=== PATIENT | female | born 1995 | race American Indian/Alaskan Native ===

== ENCOUNTER 2018-12-20 18:52 | Emergency (ER) | payer OTHER, MEDICAID ==
[2018-12-20 19:20] VITALS: BP 132/87
[2018-12-20 19:41] LABS: Basophils % (Auto) 0.5 % (0.0-1.8); Eosinophils % (Auto) 0.7 % (0.0-4.3); Hematocrit 33.5 % (30.3-42.9); Lymphocytes # (Auto) 1.8 K/mm3 (1.2-5.4); Lymphocytes % (Auto) 26.5 % (13.4-35.0); Mean Corpuscular HGB Conc 33 % (30-34); Mean Corpuscular Volume 85 fl (79-97); Monocytes # (Auto) 0.5 K/mm3 (0.0-0.8); Monocytes % (Auto) 7.1 % (0.0-7.3); Platelet Count 309 K/mm3 (140-440); Red Blood Count 3.95 M/mm3 (3.65-5.03)
[2018-12-20 19:53] LABS: BUN/Creatinine Ratio 17; Blood Urea Nitrogen 12 mg/dL (7-17); Calcium 9.1 mg/dL (8.4-10.2); Hemolysis Index 3
[2018-12-20 20:03] LABS: Bilirubin,Urine NEG (Negative); Blood,Urine SM (Negative); Color,Urine Yellow (Yellow); Mucus,Urine FEW /HPF; Protein,Urine <15 mg/dL mg/dL (Negative); Urobilinogen,Urine < 2.0 mg/dL (<2.0); WBC,Urine < 1.0 /HPF (0.0-6.0)
[2018-12-20 20:08] LABS: HCG Qualitative,Urine Negative (Negative)
--- NOTE | 2018-12-20 22:42 | Emergency Department Report ---
ED Female HPI - General Chief complaint: Vaginal Bleeding Stated complaint: LIGHT HEADED /DIZZY/CRAMPS Time Seen by Provider: 12/20/18 22:33 Source: patient Mode of arrival: Ambulatory Limitations: No Limitations - History of Present Illness Initial comments: 23-year-old female presents to ED with complaint of vaginal bleeding. Patient reports 10 day history of vaginal spotting with associated cramping. Denies vaginal discharge. Not currently taking any control. 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 denies: vaginal discharge, nausea/vomiting, fever/chills, dysuria, shortness of breath - Related Data Previous Rx's Medication Instructions Recorded Last Taken Type Fluconazole [Diflucan TAB] 150 mg PO ONCE #1 tablet 12/20/18 Unknown Rx metroNIDAZOLE [Flagyl] 500 mg PO Q12HR #14 tab 12/20/18 Unknown Rx Allergies Allergy/AdvReac Type Severity Reaction Status Date / Time No Known Allergies Allergy Verified 08/08/13 16:32 ED Review of Systems ROS: Stated complaint: LIGHT HEADED /DIZZY/CRAMPS Other details as noted in HPI Comment: All other systems reviewed and negative Constitutional: denies: chills, fever Respiratory: denies: shortness of breath Cardiovascular: denies: chest pain Gastrointestinal: abdominal pain. denies: nausea, vomiting Genitourinary: abnormal menses ED Past Medical Hx - Past Medical History Previous Medical History?: Yes Hx Hypertension: No Hx Diabetes: No Hx Deep Vein Thrombosis: No Hx Renal Disease: No Hx Sickle Cell Disease: No Hx Seizures: No Hx Asthma: No Hx HIV: No - Surgical History Past Surgical History?: No - Social History Smoking Status: Never Smoker Substance Use Type: None - Medications Home Medications: Home Medications Medication Instructions Recorded Confirmed Last Taken Type Fluconazole [Diflucan TAB] 150 mg PO ONCE #1 tablet 12/20/18 Unknown Rx metroNIDAZOLE [Flagyl] 500 mg PO Q12HR #14 tab 12/20/18 Unknown Rx ED Physical Exam - General Limitations: No Limitations General appearance: alert, in no apparent distress - Head Head exam: Present: atraumatic, normocephalic - Eye Eye exam: Present: normal appearance - ENT ENT exam: Present: mucous membranes moist - Neck Neck exam: Present: normal inspection - Respiratory Respiratory exam: Present: normal lung sounds bilaterally. Absent: respiratory distress - Cardiovascular Cardiovascular Exam: Present: regular rate, normal rhythm - GI/Abdominal GI/Abdominal exam: Present: soft, tenderness (suprapubic). Absent: distended - External exam: Present: normal external exam Speculum exam: Present: vaginal discharge Bi-manual exam: Absent: cervical motion tendernes - Extremities Exam Extremities exam: Present: normal inspection - Neurological Exam Neurological exam: Present: alert, oriented X3, normal gait. Absent: CN II-XII intact, motor sensory deficit - Psychiatric Psychiatric exam: Present: normal affect, normal mood - Skin Skin exam: Present: warm, dry, intact, normal color ED Course Vital Signs 12/20/18 12/20/18 12/20/18 19:14 19:18 22:38 Temperature 99.6 F 99.6 F Pulse Rate 82 78 Respiratory 18 18 18 Rate Blood Pressure 132/87 132/87 O2 Sat by Pulse 98 99 Oximetry 12/20/18 12/20/18 22:44 22:45 Temperature Pulse Rate Respiratory Rate Blood Pressure O2 Sat by Pulse 99 98 Oximetry ED Medical Decision Making - Lab Data Result diagrams: 12/20/18 19:30 12/20/18 19:30 - Medical Decision Making - vitals stable - Hb normal - pelvic exam shows brownish discharge - GC/ Chlam empiric abx given - BV on wet prep - advised outpt SENIOR NET WEB DEVELOPER f/u for DUB - Differential Diagnosis , ectopic, DUB Critical care attestation.: If time is entered above; I have spent that time in minutes in the direct care of this critically ill patient, excluding procedure time. ED Disposition Clinical Impression: DUB (dysfunctional uterine bleeding), Bacterial vaginosis Disposition: DC-01 TO HOME OR SELFCARE Is pt being admited?: No Condition: Stable Instructions: Bacterial Vaginosis (ED) Prescriptions: Fluconazole [Diflucan TAB] 150 mg PO ONCE #1 tablet metroNIDAZOLE [Flagyl] 500 mg PO Q12HR #14 tab Referrals: PRIMARY CARE, [Referring] - 3-5 Days Forms: STI Treatment and Prevention Time of Disposition: 23:58
[2018-12-20] MEDS ORDERED: ROCEPHIN IM ONE (23:26)
[2018-12-20] MEDS ORDERED: XYLOCAINE 1% MPF 5 mL INFILTRATI ONE (23:26)
[2018-12-20] MEDS ORDERED: ZITHROMAX PO ONE (23:26)
== END 2018-12-21 00:43 | disposition home or self-care (01) ==
LOC: ED 18:52
DX: N76.0 Acute vaginitis (principal); N93.8 Other specified abnormal uterine and vaginal bleeding
CPT/HCPCS: 36415; 80048; 81001; 81025; 84702; 85025; 87210; 87591; 96372; 99284; J0696

== ENCOUNTER 2020-04-12 18:54 | Emergency (ER) | payer BC, MEDICAID, OTHER ==
[2020-04-12 19:28] VITALS: BP 138/84
[2020-04-12 19:57] LABS: Bilirubin,Urine NEG (Negative); Blood,Urine LG (Negative); Color,Urine Yellow (Yellow); Mucus,Urine FEW /HPF; Protein,Urine <15 mg/dL mg/dL (Negative); Urobilinogen,Urine < 2.0 mg/dL (<2.0)
[2020-04-12 20:11] LABS: Basophils % (Auto) 0.5 % (0.0-1.8); Eosinophils % (Auto) 0.4 % (0.0-4.3); Hematocrit 31.2 % (30.3-42.9); Hemoglobin 10.1 gm/dl (10.1-14.3); Lymphocytes # (Auto) 1.7 K/mm3 (1.2-5.4); Lymphocytes % (Auto) 23.8 % (13.4-35.0); Mean Corpuscular HGB Conc 32 % (30-34); Mean Corpuscular Volume 82 fl (79-97); Monocytes # (Auto) 0.4 K/mm3 (0.0-0.8); Monocytes % (Auto) 5.8 % (0.0-7.3); Platelet Count 337 K/mm3 (140-440); Red Blood Count 3.81 M/mm3 (3.65-5.03)
--- NOTE | 2020-04-12 23:05 | Ultrasound Report ---
ULTRASOUND OBSTETRIC LIMITED INDICATION / CLINICAL INFORMATION: Vaginal bleeding. Clinical Gestational Age (GA): 1 weeks. 4 days COMPARISON: None available. FINDINGS: No evidence of intrauterine . The uterus is within normal limits for size and demonstrates n o evidence of focal lesions. The bilateral ovaries are not well seen on this exam secondary to patien t body habitus and overlying bowel gas. The visualized portions of the adnexa are unremarkable . ADDITIONAL FINDINGS: None. IMPRESSION: 1. No evidence of intrauterine , however this is likely secondary to the early dating (1 wee k 4 days). Correlation with test and beta hCG values is recommended. Follow-up ultrasound f or confirmation of intrauterine is also recommended. Signer Name: Eliseo Rosario MD Signed: 04/12/2020 11:01 PM Workstation Name: [id number]
--- NOTE | 2020-04-12 23:59 | Emergency Department Report ---
ED Female HPI - General Chief complaint: Vaginal Bleeding Stated complaint: VAG BLEEDING Source: patient Mode of arrival: Ambulatory Limitations: No Limitations - History of Present Illness Initial comments: Patient is a A1 25-year-old -[place] female with no past medical history presents to the ED with complaint of acute onset persistent intermittent vaginal bleeding and suprapubic pressure and pain for the last 1 month. Patient states that she initially thought that the bleeding was from her menstrual cycle but that the bleeding has been persistent intermittent, worse with sexual intercourse. Patient denies dyspareunia, vaginal discharge, dysuria, urinary frequency and urgency, nausea, vomiting, diarrhea, dizziness, traumatic injury, fever, chills, cough, chest pain or shortness of breath and low back pain. MD Complaint: vaginal bleeding, pelvic pain -: Gradual, month(s) (1) Location: suprapubic, other (vaginal) Radiation: suprapubic Severity: moderate Severity scale (0 -10): 3 Quality: cramping, dull Consistency: intermittent Improves with: none Worsens with: intercourse Are you Now?: No Associated Symptoms: denies other symptoms, vaginal bleeding, abdominal pain. denies: vaginal discharge, headaches, loss of appetite, hematuria, rash, shortness of breath, syncope, other - Related Data Sexually active: Yes : 1 Para: 0 A: 1 Previous Rx's Medication Instructions Recorded Last Taken Type Fluconazole (Nf) [Diflucan TAB] 150 mg PO ONCE #1 tablet 12/20/18 Unknown Rx metroNIDAZOLE [Flagyl] 500 mg PO Q12HR #14 tab 12/20/18 Unknown Rx Ibuprofen [Motrin] 800 mg PO Q8HR PRN #30 tablet 04/13/20 Unknown Rx medroxyPROGESTERone ACETATE 10 mg PO DAILY #10 tablet 04/13/20 Unknown Rx [Provera] Allergies Allergy/AdvReac Type Severity Reaction Status Date / Time No Known Allergies Allergy Verified 08/08/13 16:32 ED Review of Systems ROS: Stated complaint: VAG BLEEDING Other details as noted in HPI Constitutional: denies: chills, fever Eyes: denies: eye pain, eye discharge, vision change ENT: denies: ear pain, throat pain Respiratory: denies: cough, shortness of breath, wheezing Cardiovascular: denies: chest pain, palpitations Endocrine: no symptoms reported Gastrointestinal: abdominal pain (Suprapubic pain). denies: nausea, vomiting, diarrhea Genitourinary: hematuria, abnormal menses (Vaginal bleeding). denies: urgency, dysuria, discharge Musculoskeletal: denies: back pain, joint swelling, arthralgia Skin: denies: rash, lesions Neurological: denies: headache, weakness, paresthesias Psychiatric: denies: anxiety, depression Hematological/Lymphatic: denies: easy bleeding, easy bruising ED Past Medical Hx - Past Medical History Previous Medical History?: No Hx Hypertension: No Hx Diabetes: No Hx Deep Vein Thrombosis: No Hx Renal Disease: No Hx Sickle Cell Disease: No Hx Seizures: No Hx Asthma: No Hx HIV: No - Surgical History Past Surgical History?: No - Social History Smoking Status: Never Smoker Substance Use Type: None - Medications Home Medications: Home Medications Medication Instructions Recorded Confirmed Last Taken Type Fluconazole (Nf) [Diflucan TAB] 150 mg PO ONCE #1 tablet 12/20/18 Unknown Rx metroNIDAZOLE [Flagyl] 500 mg PO Q12HR #14 tab 12/20/18 Unknown Rx Ibuprofen [Motrin] 800 mg PO Q8HR PRN #30 tablet 04/13/20 Unknown Rx medroxyPROGESTERone ACETATE 10 mg PO DAILY #10 tablet 04/13/20 Unknown Rx [Provera] ED Physical Exam - General Limitations: No Limitations General appearance: alert, in no apparent distress - Head Head exam: Present: atraumatic, normocephalic, normal inspection - Eye Eye exam: Present: normal appearance, PERRL, EOMI Pupils: Present: normal accommodation - ENT ENT exam: Present: normal exam, normal orophraynx, mucous membranes moist, TM's normal bilaterally, normal external ear exam - Neck Neck exam: Present: normal inspection, full ROM - Respiratory Respiratory exam: Present: normal lung sounds bilaterally. Absent: respiratory distress, wheezes, rales, rhonchi, chest wall tenderness, accessory muscle use, decreased breath sounds - Cardiovascular Cardiovascular Exam: Present: regular rate, normal rhythm, normal heart sounds. Absent: systolic murmur, diastolic murmur, rubs, gallop - GI/Abdominal GI/Abdominal exam: Present: soft, normal bowel sounds. Absent: tenderness, guarding, rebound, hyperactive bowel sounds, hypoactive bowel sounds - Bi-manual exam: Present: other (Pelvic exam deferred, patient prefers LEARNING AND DEVELOPMENT ASSOCIATE) - Extremities Exam Extremities exam: Present: normal inspection, full ROM, normal capillary refill. Absent: pedal edema, joint swelling, calf tenderness - Back Exam Back exam: Present: normal inspection, full ROM. Absent: tenderness, CVA tenderness (R), CVA tenderness (L), muscle spasm, paraspinal tenderness - Neurological Exam Neurological exam: Present: alert, oriented X3, CN II-XII intact, normal gait, reflexes normal - Psychiatric Psychiatric exam: Present: normal affect, normal mood - Skin Skin exam: Present: warm, dry, intact, normal color. Absent: rash ED Course Vital Signs 04/12/20 19:23 Temperature 98.8 F Pulse Rate 80 Respiratory 20 Rate Blood Pressure 138/84 O2 Sat by Pulse 97 Oximetry ED Medical Decision Making - Lab Data Result diagrams: 04/12/20 19:58 - Radiology Data Radiology results: report reviewed, image reviewed Findings [facility] [address] [place] [address] Ultrasound Report Signed Patient: MARIELLE MATOS MR#: [id number] : 1995 Acct:[id number] Age/Sex: 25 / F ADM Date: 04/12/20 Loc: ED Attending Dr: Ordering Physician: OLENA JIMENEZ Date of Service: 04/12/20 Procedure(s): US OB limited Accession Number(s): [id number] cc: OLENA JIMENEZ ULTRASOUND OBSTETRIC LIMITED INDICATION / CLINICAL INFORMATION: Vaginal bleeding. Clinical Gestational Age (GA): 1 weeks. 4 days COMPARISON: None available. FINDINGS: No evidence of intrauterine . The uterus is within normal limits for size and demonstrates no evidence of focal lesions. The bilateral ovaries are not well seen on this exam secondary to patient body habitus and overlying bowel gas. The visualized portions of the adnexa are unremarkable . ADDITIONAL FINDINGS: None. IMPRESSION: 1. No evidence of intrauterine , however this is likely secondary to the early dating (1 week 4 days). Correlation with test and beta hCG values is recommended. Follow-up ultrasound for confirmation of intrauterine is also recommended. Signer Name: Eliseo Mcintyre MD Signed: 04/12/2020 11:01 PM Workstation Name: [id number] Transcribed By: Dictated By: ELISEO T. FRANCISCO JAVIER Electronically Authenticated By: ELISEO MCINTYRE Signed Date/Time: 04/12/202300 DD/ 55 TD/TT: - Medical Decision Making This is a A1 25-year-old -[place] female with no past medical history presents to the ED with complaint of acute onset persistent intermittent vaginal bleeding and suprapubic pressure and pain for the last 1 month. Patient states that she initially thought that the bleeding was from her menstrual cycle but that the bleeding has been persistent intermittent, worse with sexual intercourse. In the ED, patient is alert and oriented x3 and is not in distress. Lab test results were reviewed and are all nonactionable. Patient was treated for pain in the ED and transvaginal ultrasound showed no acute abnormalities. Patient was discharged home on medications including medroxyprogesterone and was advised to follow-up with her LEARNING AND DEVELOPMENT ASSOCIATE physician as previously scheduled for April 26, 2020 for further evaluation. Patient was advised return to the ED immediately if symptoms get worse. - Differential Diagnosis ; metrorrhagia; DU B; uterine fibroids; cystitis; ovarian cyst Critical care attestation.: If time is entered above; I have spent that time in minutes in the direct care of this critically ill patient, excluding procedure time. ED Disposition Clinical Impression: Dysfunctional uterine hemorrhage, Menorrhagia with irregular cycle Disposition: TO HOME OR SELFCARE Is pt being admited?: No Does the pt Need Aspirin: No Condition: Stable Instructions: Menstruation (ED), Menorrhagia (ED) Additional Instructions: All lab test results are unremarkable. Transvaginal ultrasound is unremarkable with no acute abnormalities. Therefore take medication as advised, follow-up with your LEARNING AND DEVELOPMENT ASSOCIATE physician in 5 to 7 days for reevaluation. Return to the ED immediately if symptoms get worse. Prescriptions: Ibuprofen [Motrin] 800 mg PO Q8HR PRN #30 tablet PRN Reason: Pain , Severe (7-10) medroxyPROGESTERone ACETATE [Provera] 10 mg PO DAILY #10 tablet Referrals: GAYATRI ACEVEDO MD [Staff Physician] - 3-5 Days Time of Disposition: 00:00 Print Language: SLOVAK
== END 2020-04-13 00:10 | disposition home or self-care (01) ==
LOC: ED 18:54
DX: N92.0 Excessive and frequent menstruation with regular cycle (principal); N93.8 Other specified abnormal uterine and vaginal bleeding; Z79.1 Long term (current) use of non-steroidal anti-inflammatories (NSAID); Z79.899 Other long term (current) drug therapy
CPT/HCPCS: 36415; 76815; 81001; 84703; 85025; 86900; 86901

== ENCOUNTER 2020-07-09 13:07 | Emergency (ER) | payer SELFPAY ==
[2020-07-09 16:16] VITALS: BP 131/91
--- NOTE | 2020-07-09 16:16 | Emergency Department Report ---
Blank Doc - Documentation Documentation: 25-year-old female that presents with right sided headache and weakness. Stated has been taking OTC medications with no relief. Denies any cough. Matthew hx of headache like this. This initial assessment/diagnostic orders/clinical plan/treatment(s) is/are subject to change based on patient's health status, clinical progression and re- assessment by fellow clinical providers in the ED. Further treatment and workup at subsequent clinical providers discretion. Patient/guardians urged not to elope from the ED as their condition may be serious if not clinically assessed and managed. Initial orders include: 1- Patient sent to [facility] for further evaluation and treatment 2- CT head
--- NOTE | 2020-07-09 16:53 | Cat Scan Report ---
CT BRAIN: 07/09/2020 INDICATION / CLINICAL INFORMATION: Right-sided headache. COMPARISON: 10/27/2014 FINDINGS: BRAIN/INTRACRANIAL STRUCTURES: Unenhanced CT images of the brain demonstrate no evidence of acute int racranial abnormality. Ventricles and sulci are normal in size and shape. There is no evidence of ischemic injury, hemorrhage, or mass. There are no abnormal extra-axial fluid collections. There is been no significant change when compared to 10/27/2014. EXTRACRANIAL STRUCTURES: Unremarkable. IMPRESSION: Negative unenhanced CT of the brain. All CT scans at this location are performed using dose reduction to ALARA by means of automated expos ure control. Signer Name: Manish Magallon MD Signed: 07/09/2020 4:49 PM Workstation Name: [id number]
== END 2020-07-10 01:24 ==
LOC: ED 13:07
DX: R51.9 Headache, unspecified (principal); M79.10 Myalgia, unspecified site; Z53.21 Procedure and treatment not carried out due to patient leaving prior to being seen by health care provider
CPT/HCPCS: 70450

== ENCOUNTER 2020-08-14 11:25 | Emergency (ER) | payer SELFPAY ==
--- NOTE | 2020-08-14 11:37 | Emergency Department Report ---
ED HPI - General Chief complaint: Vaginal Bleeding Stated complaint: 11WKS PREG BLEEDING X 2DAYS Time Seen by Provider: 08/14/20 11:29 Source: patient Mode of arrival: Ambulatory Limitations: No Limitations - History of Present Illness Initial comments: Patient is a 25-year-old female presents emergency room with complaints of vaginal bleeding that began 2 days ago. She denies any significant heavy bleeding. She states that she has passed a few small clots. She states that she is a currently 11 weeks . She states her MANAGER ADMINISTRATION is at [employer] [facility]. She states that they did a urine test to confirm but she has not had any other evaluation yet. She she states that she has some "mild slight back pain". She denies any abdominal pain, pelvic pain, nausea, vomiting, diarrhea, dysuria, abnormal vaginal discharge. No past medical history. No allergies to medications. /P: 2/A: 1 - Related Data Previous Rx's Medication Instructions Recorded Last Taken Type Fluconazole (Nf) [Diflucan TAB] 150 mg PO ONCE #1 tablet 12/20/18 Unknown Rx metroNIDAZOLE [Flagyl] 500 mg PO Q12HR #14 tab 12/20/18 Unknown Rx Ibuprofen [Motrin] 800 mg PO Q8HR PRN #30 tablet 04/13/20 Unknown Rx medroxyPROGESTERone ACETATE 10 mg PO DAILY #10 tablet 04/13/20 Unknown Rx [Provera] cephALEXin [Keflex] 500 mg PO BID 7 Days #14 cap 08/14/20 Unknown Rx Allergies Allergy/AdvReac Type Severity Reaction Status Date / Time No Known Allergies Allergy Verified 08/14/20 11:28 ED Review of Systems ROS: Stated complaint: 11WKS PREG BLEEDING X 2DAYS Other details as noted in HPI Comment: All other systems reviewed and negative ED Past Medical Hx - Past Medical History Hx Hypertension: No Hx Diabetes: No Hx Deep Vein Thrombosis: No Hx Renal Disease: No Hx Sickle Cell Disease: No Hx Seizures: No Hx Asthma: No Hx HIV: No - Social History Smoking Status: Never Smoker Substance Use Type: None - Medications Home Medications: Home Medications Medication Instructions Recorded Confirmed Last Taken Type Fluconazole (Nf) [Diflucan TAB] 150 mg PO ONCE #1 tablet 12/20/18 Unknown Rx metroNIDAZOLE [Flagyl] 500 mg PO Q12HR #14 tab 12/20/18 Unknown Rx Ibuprofen [Motrin] 800 mg PO Q8HR PRN #30 tablet 04/13/20 Unknown Rx medroxyPROGESTERone ACETATE 10 mg PO DAILY #10 tablet 04/13/20 Unknown Rx [Provera] cephALEXin [Keflex] 500 mg PO BID 7 Days #14 cap 08/14/20 Unknown Rx ED Physical Exam - General Limitations: No Limitations General appearance: alert, in no apparent distress - Head Head exam: Present: atraumatic, normocephalic - Eye Eye exam: Present: normal appearance - ENT ENT exam: Present: mucous membranes moist - Respiratory Respiratory exam: Present: normal lung sounds bilaterally. Absent: respiratory distress, wheezes, rales, rhonchi, stridor, chest wall tenderness, accessory muscle use, decreased breath sounds, prolonged expiratory - Cardiovascular Cardiovascular Exam: Present: regular rate, normal rhythm, normal heart sounds. Absent: systolic murmur, diastolic murmur, rubs, gallop - GI/Abdominal GI/Abdominal exam: Present: soft, normal bowel sounds. Absent: distended, tenderness, guarding, rebound, rigid - Back Exam Back exam: Absent: CVA tenderness (R), CVA tenderness (L) - Neurological Exam Neurological exam: Present: alert, oriented X3 - Psychiatric Psychiatric exam: Present: normal affect, normal mood - Skin Skin exam: Present: warm, dry, intact ED Course Vital Signs 08/14/20 11:31 Temperature 98.3 F Pulse Rate 95 H Respiratory 20 Rate Blood Pressure 143/86 O2 Sat by Pulse 97 Oximetry ED Medical Decision Making - Lab Data Result diagrams: 08/14/20 11:39 08/14/20 11:39 Lab Results 08/14/20 08/14/20 08/14/20 Range/Units 11:39 11:39 11:39 WBC 6.8 (4.5-11.0) K/mm3 RBC 3.59 L (3.65-5.03) M/mm3 Hgb 10.2 (10.1-14.3) gm/dl Hct 29.3 L (30.3-42.9) % MCV 82 (79-97) fl MCH 28 (28-32) pg MCHC 35 H (30-34) % RDW 17.1 H (13.2-15.2) % Plt Count 343 (140-440) K/mm3 Lymph % (Auto) 32.5 (13.4-35.0) % [place] % (Auto) 6.5 (0.0-7.3) % Eos % (Auto) 0.4 (0.0-4.3) % Baso % (Auto) 0.4 (0.0-1.8) % Lymph # (Auto) 2.2 (1.2-5.4) K/mm3 [place] # (Auto) 0.4 (0.0-0.8) K/mm3 Eos # (Auto) 0.0 (0.0-0.4) K/mm3 Baso # (Auto) 0.0 (0.0-0.1) K/mm3 Seg Neutrophils % 60.2 (40.0-70.0) % Seg Neutrophils # 4.1 (1.8-7.7) K/mm3 Sodium 137 (137-145) mmol/L Potassium 4.0 (3.6-5.0) mmol/L Chloride 107.1 H (98-107) mmol/L Carbon Dioxide 23 (22-30) mmol/L Anion Gap 11 mmol/L BUN 12 (7-17) mg/dL Creatinine 0.6 (0.6-1.2) mg/dL Estimated GFR > 60 ml/min BUN/Creatinine Ratio 20 % Glucose 91 (65-100) mg/dL Calcium 9.1 (8.4-10.2) mg/dL Total Bilirubin 0.20 (0.1-1.2) mg/dL AST 13 (5-40) units/L ALT 13 (7-56) units/L Alkaline Phosphatase 60 (35-129) units/L Total Protein 7.4 (6.3-8.2) g/dL Albumin 3.8 L (3.9-5) g/dL Albumin/Globulin Ratio 1.1 % HCG, Quant 32757 H (0-4) mIU/mL Urine Color (Yellow) Urine Turbidity (Clear) Urine pH (5.0-7.0) Ur Specific [place] (1.003-1.030) Urine Protein (Negative) mg/dL Urine Glucose (UA) (Negative) mg/dL Urine Ketones (Negative) mg/dL Urine Blood (Negative) Urine Nitrite (Negative) Urine Bilirubin (Negative) Urine Urobilinogen (<2.0) mg/dL Ur Leukocyte Esterase (Negative) Urine WBC (Auto) (0.0-6.0) /HPF Urine RBC (Auto) (0.0-6.0) /HPF U Epithel Cells (Auto) (0-13.0) /HPF Urine Bacteria (Auto) (Negative) /HPF Urine Mucus /HPF 08/14/20 Range/Units 11:48 WBC (4.5-11.0) K/mm3 RBC (3.65-5.03) M/mm3 Hgb (10.1-14.3) gm/dl Hct (30.3-42.9) % MCV (79-97) fl MCH (28-32) pg MCHC (30-34) % RDW (13.2-15.2) % Plt Count (140-440) K/mm3 Lymph % (Auto) (13.4-35.0) % [place] % (Auto) (0.0-7.3) % Eos % (Auto) (0.0-4.3) % Baso % (Auto) (0.0-1.8) % Lymph # (Auto) (1.2-5.4) K/mm3 [place] # (Auto) (0.0-0.8) K/mm3 Eos # (Auto) (0.0-0.4) K/mm3 Baso # (Auto) (0.0-0.1) K/mm3 Seg Neutrophils % (40.0-70.0) % Seg Neutrophils # (1.8-7.7) K/mm3 Sodium (137-145) mmol/L Potassium (3.6-5.0) mmol/L Chloride (98-107) mmol/L Carbon Dioxide (22-30) mmol/L Anion Gap mmol/L BUN (7-17) mg/dL Creatinine (0.6-1.2) mg/dL Estimated GFR ml/min BUN/Creatinine Ratio % Glucose (65-100) mg/dL Calcium (8.4-10.2) mg/dL Total Bilirubin (0.1-1.2) mg/dL AST (5-40) units/L ALT (7-56) units/L Alkaline Phosphatase (35-129) units/L Total Protein (6.3-8.2) g/dL Albumin (3.9-5) g/dL Albumin/Globulin Ratio % HCG, Quant (0-4) mIU/mL Urine Color [place] (Yellow) Urine Turbidity Cloudy (Clear) Urine pH 5.0 (5.0-7.0) Ur Specific [place] 1.028 (1.003-1.030) Urine Protein 30 mg/dl (Negative) mg/dL Urine Glucose (UA) Neg (Negative) mg/dL Urine Ketones Neg (Negative) mg/dL Urine Blood Lg (Negative) Urine Nitrite Neg (Negative) Urine Bilirubin Neg (Negative) Urine Urobilinogen < 2.0 (<2.0) mg/dL Ur Leukocyte Esterase Mod (Negative) Urine WBC (Auto) 29.0 H (0.0-6.0) /HPF Urine RBC (Auto) 16.0 (0.0-6.0) /HPF U Epithel Cells (Auto) 38.0 H (0-13.0) /HPF Urine Bacteria (Auto) 1+ (Negative) /HPF Urine Mucus 3+ /HPF - Radiology Data Radiology results: report reviewed US OB <= 14 weeks fetus INDICATION / CLINICAL INFORMATION: , bleeding. COMPARISON: None available. FINDINGS: Intrauterine gestational sac is seen with pole. [place]-rump length is 2.3 cm, 9 weeks 0 days. No heart rate was detected. No yolk sac is seen. There is a 1.9 cm right ovarian cyst. Left ovary is unremarkable. No free fluid is seen. IMPRESSION: 1. No embryonic cardiac activity was detected. Findings are suggestive of intr auterine demise, correlate with hCG levels. Signer Name: Zeke Givens MD Signed: 08/14/2020 1:19 PM Workstation Name: [id number] Transcribed By: TARIQ Dictated By: Zeke Givens MD Electronically Authenticated By: Zeke Givens MD Signed Date/Time: 08/14/20 1319 DD/ 1317 TD/TT: - Medical Decision Making Patient is a 25-year-old female presents emergency room with complaints of vaginal bleeding that began 2 days ago. She denies any significant heavy bleeding. She states that she has passed a few small clots. She states that brent jung is a currently 11 weeks . She states her MANAGER ADMINISTRATION is at [facility]. She states that they did a urine test to confirm but she has not had any other evaluation yet. She she states that she has some "mild slight back pain". She denies any abdominal pain, pelvic pain, nausea, vomiting, diarrhea, dysuria, abnormal vaginal discharge. No past medical history. No allergies to medications. /P: 2/A: 1. Vitals are normal. No abdominal tenderness on exam, no guarding, no rebound, no rigidity, normal bowel sounds, [place] [address], otherwise labs are normal. Upon chart review, patient is Rh+. UA shows evidence of UTI, there are many epithelial cells, could be due to contamination, will cover patient with Keflex and urine culture was sent, advised to follow-up with a primary care doctor for urinary testing. OB ultrasound 1. No embryonic cardiac activity was detected. Findings are suggestive of intrauterine demise, correlate with hCG levels. Discussed all results with patient and answered questions. Patient was given her ultrasound report to take to her MANAGER AD[facility]ATION. Discussed the importance of MANAGER ADMINISTRATION follow-up within the next 2 days. Discussed that this is a threatened miscarriage with likely demise. Advised patient Please increase your water intake. May take Tylenol as needed for discomfort. Please take me dication as prescribed. Please practice pelvic rest. Follow-up with your MANAGER ADMINISTRATION at [facility] within the next 2 days. Please discuss with your MANAGER ADMINISTRATION regarding her ultrasound findings. Return to emergency room for any new or worsening symptoms. Critical care attestation.: If time is entered above; I have spent that time in minutes in the direct care of this critically ill patient, excluding procedure time. ED Disposition Clinical Impression: Threatened miscarriage UTI (urinary tract infection) Qualifiers: Urinary tract infection type: acute cystitis Hematuria presence: with hematuria Qualified Code(s): N30.01 - Acute cystitis with hematuria Disposition: TO HOME OR SELFCARE Is pt being admited?: No Does the pt Need Aspirin: No Condition: Stable Instructions: Threatened Miscarriage, Urinary Tract Infection, Adult, [id number] Additional Instructions: Please increase your water intake. May take Tylenol as needed for discomfort. Please take medication as prescribed. Please practice pelvic rest. Follow-up with your MANAGER ADMINISTRATION at [facility] within the next 2 days. Please discuss with your MANAGER ADMINISTRATION regarding her ultrasound findings. Return to emergency room for any new or worsening symptoms. Prescriptions: cephALEXin [Keflex] 500 mg PO BID 7 Days #14 cap Referrals: [facility] [Provider Group] - 2-3 Days PRIMARY [facility]ARE, [Primary Care Provider] - 2-3 Days Time of Disposition: 13:29 Print Language: SERBIAN
[2020-08-14 11:39] VITALS: BP 143/86
[2020-08-14 11:51] LABS: Basophils % (Auto) 0.4 % (0.0-1.8); Eosinophils % (Auto) 0.4 % (0.0-4.3); Hematocrit 29.3 % (30.3-42.9); Hemoglobin 10.2 gm/dl (10.1-14.3); Lymphocytes # (Auto) 2.2 K/mm3 (1.2-5.4); Lymphocytes % (Auto) 32.5 % (13.4-35.0); Mean Corpuscular HGB Conc 35 % (30-34); Mean Corpuscular Volume 82 fl (79-97); Monocytes # (Auto) 0.4 K/mm3 (0.0-0.8); Monocytes % (Auto) 6.5 % (0.0-7.3); Platelet Count 343 K/mm3 (140-440); Red Blood Count 3.59 M/mm3 (3.65-5.03); Red Cell Distribution Width 17.1 % (13.2-15.2)
[2020-08-14 12:11] LABS: Bacteria,Urine 1+ /HPF (Negative); Bilirubin,Urine NEG (Negative); Blood,Urine LG (Negative); Color,Urine Amber (Yellow); Mucus,Urine 3+ /HPF; Urobilinogen,Urine < 2.0 mg/dL (<2.0)
[2020-08-14 12:13] LABS: Alanine Aminotransferase 13 units/L (7-56); Albumin 3.8 g/dL (3.9-5); BUN/Creatinine Ratio 20; Blood Urea Nitrogen 12 mg/dL (7-17); Calcium 9.1 mg/dL (8.4-10.2); Hemolysis Index 1
--- NOTE | 2020-08-14 13:23 | Ultrasound Report ---
US OB <= 14 weeks fetus INDICATION / CLINICAL INFORMATION: , bleeding. COMPARISON: None available. FINDINGS: Intrauterine gestational sac is seen with pole. [place]-rump length is 2.3 cm, 9 weeks 0 days. No heart rate was detected. No yolk sac is seen. There is a 1.9 cm right ovarian cyst. Left ovary is unremarkable. No free fluid is seen. IMPRESSION: 1. No embryonic cardiac activity was detected. Findings are suggestive of intrauterine demise, correlate with hCG levels. Signer Name: Zeke Givens MD Signed: 08/14/2020 1:19 PM Workstation Name: [id number]
== END 2020-08-14 13:30 | disposition home or self-care (01) ==
LOC: ED 11:25
DX: O20.0 Threatened abortion (principal); O23.41 Unspecified infection of urinary tract in pregnancy, first trimester; Z3A.11 11 weeks gestation of pregnancy; Z79.899 Other long term (current) drug therapy
CPT/HCPCS: 36415; 76801; 80053; 81001; 84702; 85025; 87086

== ENCOUNTER 2021-05-08 23:31 | Emergency (ER) | payer SELFPAY ==
[2021-05-08 23:36] VITALS: BP 122/75
[2021-05-09 01:21] LABS: Basophils % (Auto) 0.7 % (0.0-1.8); Eosinophils # (Auto) 0.1 K/mm3 (0.0-0.4); Eosinophils % (Auto) 0.9 % (0.0-4.3); Hematocrit 31.3 % (30.3-42.9); Hemoglobin 9.9 gm/dl (10.1-14.3); Lymphocytes # (Auto) 1.7 K/mm3 (1.2-5.4); Lymphocytes % (Auto) 29.1 % (13.4-35.0); Mean Corpuscular HGB Conc 32 % (30-34); Mean Corpuscular Volume 80 fl (79-97); Monocytes # (Auto) 0.4 K/mm3 (0.0-0.8); Monocytes % (Auto) 7.3 % (0.0-7.3); Platelet Count 325 K/mm3 (140-440); Red Blood Count 3.92 M/mm3 (3.65-5.03); Red Cell Distribution Width 18.9 % (13.2-15.2)
[2021-05-09 01:42] LABS: Bilirubin,Urine NEG (Negative); Blood,Urine MOD (Negative); Color,Urine Yellow (Yellow); Mucus,Urine 2+ /HPF; Protein,Urine <15 mg/dL mg/dL (Negative); Urobilinogen,Urine < 2.0 mg/dL (<2.0)
--- NOTE | 2021-05-09 02:18 | Emergency Department Report ---
ED Female HPI - General Chief complaint: Vaginal Bleeding Stated complaint: POSS MISCARRIAGE Time Seen by Provider: 05/08/21 23:59 Source: patient, EMS Mode of arrival: Stretcher Limitations: No Limitations - History of Present Illness Initial comments: 26-year-old -[place] female with suspected presents emerged department complaining of pelvic cramping and vaginal bleeding started tonight while she was at work.. Patient states that she took a test a few days ago and it was positive and and she had some spotting on yesterday which progressed to some mild to moderate bleeding while at work with a blood clot being passed which triggered her coming to the emergency department today. She reports no abdominal trauma, no fever, chills, sweats, no presyncope, no chest pain, no palpitations and no vaginal discharge has not yet had care visit would be very early in the if she is in fact at about 3 to 4 weeks MD Complaint: vaginal bleeding -: Gradual Location: suprapubic Radiation: non-radiating Severity: mild Quality: cramping, dull Consistency: constant Improves with: none Worsens with: none Are you Now?: Yes Associated Symptoms: vaginal bleeding, abdominal pain. denies: loss of appetite, hematuria, shortness of breath, syncope, weakness - Related Data Sexually active: Yes Previous Rx's Medication Instructions Recorded Last Taken Type Fluconazole (Nf) [Diflucan TAB] 150 mg PO ONCE #1 tablet 12/20/18 Unknown Rx metroNIDAZOLE [Flagyl] 500 mg PO Q12HR #14 tab 12/20/18 Unknown Rx Ibuprofen [Motrin] 800 mg PO Q8HR PRN #30 tablet 04/13/20 Unknown Rx medroxyPROGESTERone ACETATE 10 mg PO DAILY #10 tablet 04/13/20 Unknown Rx [Provera] cephALEXin [Keflex] 500 mg PO BID 7 Days #14 cap 08/14/20 Unknown Rx Allergies Allergy/AdvReac Type Severity Reaction Status Date / Time No Known Allergies Allergy Verified 08/14/20 11:28 ED Review of Systems ROS: Stated complaint: POSS MISCARRIAGE Other details as noted in HPI ED Past Medical Hx - Past Medical History Previous Medical History?: No Hx Hypertension: No Hx Diabetes: No Hx Deep Vein Thrombosis: No Hx Renal Disease: No Hx Sickle Cell Disease: No Hx Seizures: No Hx Asthma: No Hx HIV: No - Surgical History Past Surgical History?: No - Social History Smoking Status: Never Smoker Substance Use Type: None - Medications Home Medications: Home Medications Medication Instructions Recorded Confirmed Last Taken Type Fluconazole (Nf) [Diflucan TAB] 150 mg PO ONCE #1 tablet 12/20/18 Unknown Rx metroNIDAZOLE [Flagyl] 500 mg PO Q12HR #14 tab 12/20/18 Unknown Rx Ibuprofen [Motrin] 800 mg PO Q8HR PRN #30 tablet 04/13/20 Unknown Rx medroxyPROGESTERone ACETATE 10 mg PO DAILY #10 tablet 04/13/20 Unknown Rx [Provera] cephALEXin [Keflex] 500 mg PO BID 7 Days #14 cap 08/14/20 Unknown Rx ED Physical Exam - General Limitations: No Limitations ED Course Vital Signs 05/08/21 23:30 Temperature 98.4 F Pulse Rate 72 Respiratory 18 Rate Blood Pressure 122/75 [Left] O2 Sat by Pulse 95 Oximetry ED Medical Decision Making - Lab Data Result diagrams: 05/09/21 00:48 Critical care attestation.: If time is entered above; I have spent that time in minutes in the direct care of this critically ill patient, excluding procedure time. ED Disposition Clinical Impression: Vaginal bleeding Disposition: HOME / SELF CARE / HOMELESS Is pt being admited?: No Does the pt Need Aspirin: No Condition: Stable Instructions: Abnormal Uterine Bleeding, Dysfunctional Uterine Bleeding Additional Instructions: Your hemoglobin quant is 2.79 at this present time is consistent with a negative test is negative we will hold off on ultrasound as is not indicated with hCG at this range please reevaluate your hCG in 3 to 4days at which point time it should steadily be increasing if you are in fact . Follow-up with your primary care provider or [facility] for this test. Please use Tylenol as needed for any discomfort, maintaining the appropriate hydration as well Referrals: [facility] [Provider Group] - 3-5 Days
== END 2021-05-09 02:31 | disposition home or self-care (01) ==
LOC: ED 23:31
DX: O46.8X1 Other antepartum hemorrhage, first trimester (principal); N93.9 Abnormal uterine and vaginal bleeding, unspecified; Z3A.00 Weeks of gestation of pregnancy not specified
CPT/HCPCS: 36415; 81001; 84702; 85025; 99283